=== PATIENT | female | born 1970 | race African-American/Black ===

== ENCOUNTER 2019-05-03 18:09 | Emergency (ER) | payer OTHER ==
[~2019-05-03] VITALS: Ht 172.7 cm; Wt 81.6 kg
[~2019-05-03 18:09] MED LIST: ACETAMINOPHEN-1 EAC1 ORAL; ADVIL200 M2 ORAL; ALBUTEROL SULF8.5 GM INH; AMOXICILLI250 MG/5 M ORAL; AUGMENTIN 875-1 EAC1 ORAL; AZITHROMYCIN250 MG ORAL; BIAXIN500 MG ORAL; CEPACOL SORE T1 EAC5 MM; GUAIFENESIN1200 MG PO; HYDROCHLOROTH12.5 M2; HYDROCHLOROTH12.5 M2 ORAL; HYDROCHLOROTHIA25 MG ORAL; IBUPROFEN600 MG ORAL; IBUPROFEN600 MG PO; NAPROSYN500 M1 ORAL; NEXAFED30 MG ORAL; NKM; NORCO 5-325 TA1 EACH ORAL; NORCO 5-325 TA1 EACH PO; PAMPRIN MAX PA1 EACH PO; PERIDEX 0.12% O15 ML ORO; PREDNISONE20 MG ORAL; PROMETHAZINE-D118 ML ORAL; SUDAFED PE PRE1 EACH PO; TRAMADOL HCL50 MG ORAL; VALIUM5 MG ORAL
[2019-05-03] MEDS ORDERED: NKM (18:25)
[2019-05-03 18:43] VITALS: BP 170/87
--- NOTE | 2019-05-03 18:43 | NUR ---
ED Nurse Note: Patient ambulated to ER from home c/o VIGIL and sinus congestion x2 weeks. Patient is alert and oriented x4 and ambulatory. skin clean and intact. calm and cooperative. no acute distress noted at this time.
--- NOTE | 2019-05-03 18:47 | Emergency Room Report ---
History of Present Illness General Chief Complaint: Headache Source: Patient Present Illness HPI 48-year-old female presents to the emergency department complaining of 7 out of 10 severity frontal headache with nasal congestion and sinus pressure bilaterally x2 weeks. Patient reports initially some response to over-the- counter decongestants however no longer receiving any relief. Patient denies fevers or chills she reports increased lacrimation in the eyes bilaterally she denies dizziness she reports fullness sensation in bilateral ears. Patient denies nausea or vomiting she denies neck pain or stiffness. Patient denies photophobia. 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 Patient reports having environmental allergies as a child she denies taking daily allergy medications. Reports some purulent nasal discharge she denies history of immunocompromise or diabetes. Patient does report history of high blood pressure but was never prescribed medications. No other aggravating or relieving factors at this time. She denies unilateral facial pain, swelling of the lower eyelids or soft tissues of the orbits. Denies rashes or pain with eye movements, or paresthesias, or motor weakness. Denies sudden onset of her VIGIL. Allergies: Coded Allergies: No Known Allergies (Unverified , 03/01/13) Patient History Past Medical History: see triage record, HTN Past Surgical History: none Pertinent Family History: none Last Menstrual Period: 05/03/19 Now: No Reviewed Nursing Documentation: PMH: Agreed; PSxH: Agreed Nursing Documentation-PMH Past Medical History: No History, Except For Hx Cardiac Problems: No - BRONCHITIS Hx Hypertension: Yes Hx Asthma: No Hx Cancer: No Hx Neurological Problems: No Hx Cerebrovascular Accident: No Hx Transient Ischemic Attacks: No Hx Dementia: No Hx Alzheimer's Disease: No Hx Parkinson's Disease: No Hx Meningitis: No Hx Encephalitis: No Hx Seizures: No Hx Epilepsy: No Hx Multiple Sclerosis: No Review of Systems All Other Systems: negative except mentioned in HPI Physical Exam Vital Signs Date Time Temp Pulse Resp B/P (MAP) Pulse Ox O2 Delivery O2 Flow Rate FiO2 05/03/19 18:21 98.4 110 18 170/87 (114) 98 Room Air Sp02 EP Interpretation: reviewed, normal General Appearance: no apparent distress, alert, GCS 15, non-toxic Head: normocephalic, atraumatic Eyes: bilateral eye normal inspection, bilateral eye PERRL ENT: hearing grossly normal, normal pharynx, normal voice, TMs + canals normal , uvula midline, moist mucus membranes, nasal congestion, other - bilateral maxillary ttp to the sinuses and frontal sinuses. purulent d/c /rhinorrhea in bilateral nares. no orbital ST swelling. Neck: full range of motion Respiratory: chest non-tender, lungs clear, normal breath sounds, no rhonchi, no respiratory distress, no wheezing, speaking full sentences Cardiovascular #1: regular rate, rhythm Musculoskeletal: back normal, gait/station normal, normal range of motion, non- tender Neurologic: alert, oriented x3, responsive, motor strength/tone normal, sensory intact, normal gait, speech normal, grossly normal, grossly normal Psychiatric: judgement/insight normal Lymphatic: no adenopathy Medical Decision Making PA Attestation Dr. Yao Is my supervising Physician whom patient management has been discussed with. Diagnostic Impression: Primary Impression: Sinusitis Qualified Codes: J01.10 - Acute frontal sinusitis, unspecified ER Course 48-year-old female presents to the emergency department complaining of 7 out of 10 severity frontal headache with nasal congestion and sinus pressure bilaterally x2 weeks. Patient reports initially some response to over-the- counter decongestants however no longer receiving any relief. Patient denies fevers or chills she reports increased lacrimation in the eyes bilaterally she denies dizziness she reports fullness sensation in bilateral ears. Patient denies nausea or vomiting she denies neck pain or stiffness. Patient denies photophobia. 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 Patient reports having environmental allergies as a child she denies taking daily allergy medications. Reports some purulent nasal discharge she denies history of immunocompromise or diabetes. Patient does report history of high blood pressure but was never prescribed medications. No other aggravating or relieving factors at this time. She denies unilateral facial pain, swelling of the lower eyelids or soft tissues of the orbits. Denies rashes or pain with eye movements, or paresthesias, or motor weakness. Denies sudden onset of her VIGIL. Ddx considered but are not limited to URI, pneumonia, PE, strep pharyngitis, meningitis, Sinusitis, orbital cellulitis, rebound congestion, allergic rhinitis just to name a few. Vital signs: Pt. is afebrile, the remaining VS are WNL H&PE are most consistent with Frontal Sinusitis with symptoms present for greater than 10 days, make this patient a candidate for oral antibiotic therapy according to MIPS criteria. ORDERS: none required at this time, the diagnosis is clinical ED INTERVENTIONS: None required at this time. DISCHARGE: At this time pt. is stable for d/c to home. Will provide printed patient care instructions, and any necessary prescriptions. Care plan and follow up instructions have been discussed with the patient prior to discharge. Last Vital Signs Date Time Temp Pulse Resp B/P (MAP) Pulse Ox O2 Delivery O2 Flow Rate FiO2 05/03/19 18:43 98.4 70 18 170/87 98 Room Air Status: improved Disposition: HOME, SELF-CARE Condition: Stable Scripts Sodium Chloride (SALINE NOSE SPRAY) 45 Ml [place] 1 SPR NS Q6HR, #45 SPRAY Prov: Melly Lazo 05/03/19 Cetirizine Hcl* (ZYRTEC*) 10 Mg Tablet 10 MG ORAL DAILY, #30 TAB 0 Refills Prov: Melly Lazo 05/03/19 Amoxicillin/Potassium Clav 875-125* (AUGMENTIN 875-125 TABLET*) 1 Each Tablet 1 TAB ORAL TWICE A DAY for 10 Days, #20 TAB Prov: Melly Lazo 05/03/19 Patient Instructions: Sinus Headache, Sinusitis, Adult, [id number] Additional Instructions: Take medications as directed. Follow up with a Primary Care Provider in 3-5 days, even if your symptoms have resolved. Return sooner to ED if new symptoms occur, or current symptoms become worse. - Please note that this Emergency Department Report was dictated using [employer] dough mixer technology software, occasionally this can lead to erroneous entry secondary to interpretation by the dictation equipment. Melly Lazo May 03, 2019 18:47
--- NOTE | 2019-05-03 19:00 | NUR ---
HAND-OFF: Report given to MINDY Bower. RAJ at bedside. no orders to carry at this moment.
[2019-05-03] MEDS ORDERED: ZYRTEC10 MG ORAL (19:10)
[2019-05-03] MEDS ORDERED: AUGMENTIN 875-1 EAC1 ORAL (19:10)
[2019-05-03] MEDS ORDERED: SALINE NOSE SPR45 ML NS (19:10)
[2019-05-03 19:20] VITALS: BP 170/87
--- NOTE | 2019-05-03 19:20 | NUR ---
ER Nurse Note: Pt seen, treated, medically cleared for discharge by ERMD. Discharge instuctions and prescriptions given with repeat verbalization by pt. Emphasized to follow up with primay care provider; take whole course of medication. Explained each medication. All orders completed per ERMD orders. Pt a&ox4, VSS, no signs of distress. ID band removed. All questions answered per pt's questions. Pt left with all belongings, left with own transportation.
== END 2019-05-03 19:20 | disposition home or self-care (01) ==
LOC: EMR 19:06
DX: J01.10 Acute frontal sinusitis, unspecified (principal); I10 Essential (primary) hypertension
CPT/HCPCS: 99282

== ENCOUNTER 2019-05-16 19:32 | Emergency (ER) | payer OTHER ==
[~2019-05-16] VITALS: Ht 172.7 cm; Wt 81.6 kg
[~2019-05-16 19:32] MED LIST changes: +SALINE NOSE SPR45 ML NS; +ZYRTEC10 MG ORAL
[2019-05-16 19:46] VITALS: BP 176/105
--- NOTE | 2019-05-16 19:46 | NUR ---
ED Nurse Note: Pt from home walked in due to dizziness, nausea with right ear pain x 3 days. No ear discharge. AAO x4, ambulates with steady gait. Sinus tach on campus monitor 125-133 HR.
[2019-05-16] MEDS ORDERED: Meclizine 25mg tab ORAL ONE (20:15)
[2019-05-16] MEDS ORDERED: ZOFRAN4 MG ORAL (20:33)
[2019-05-16] MEDS ORDERED: MECLIZINE HCL25 MG ORAL (20:33)
[2019-05-16 20:41] VITALS: BP 162/79
--- NOTE | 2019-05-16 20:41 | NUR ---
ER DISCHARGE NOTE: Patient is cleared to be discharged per ERMD, pt is aox4, on room air, with stable vital signs. pt was given dc and prescription instructions, pt was able to verbalize understanding, pt id band removed without complications. pt is able to ambulate with steady gait. pt took all belongings and left with her .
--- NOTE | 2019-05-17 21:58 | Emergency Room Report ---
History of Present Illness General Chief Complaint: Dizziness Source: Patient Present Illness HPI Patient is a 48 year old female who presented after increased dizziness. She reported having increased right aural fullness and decreased hearing. She denies any fever. She had recently finished a course of antibiotics for otitis media. She denies any tinnitus. Dizziness was described as a spinning sensation worse with head movements. No weakness or numbness. She had been ambulatory without assistance. Had prior history of hypertension which is worse when she visits doctors office. She denies and chest discomfort or palpitations. She had nausea without vomiting. She denies visual changes or changes in speech or strength. Allergies: Coded Allergies: No Known Allergies (Unverified , 03/01/13) Patient History Past Medical History: see triage record Last Menstrual Period: n/a Now: No Reviewed Nursing Documentation: PMH: Agreed; PSxH: Agreed Nursing Documentation-PMH Past Medical History: No History, Except For Hx Cardiac Problems: No - BRONCHITIS Hx Hypertension: Yes Hx Asthma: No Hx Cancer: No Hx Neurological Problems: No Hx Cerebrovascular Accident: No Hx Transient Ischemic Attacks: No Hx Dementia: No Hx Alzheimer's Disease: No Hx Parkinson's Disease: No Hx Meningitis: No Hx Encephalitis: No Hx Seizures: No Hx Epilepsy: No Hx Multiple Sclerosis: No Review of Systems All Other Systems: negative except mentioned in HPI Physical Exam Vital Signs Date Time Temp Pulse Resp B/P (MAP) Pulse Ox O2 Delivery O2 Flow Rate FiO2 05/16/19 19:36 98.4 131 18 176/119 (138) 100 Room Air General Appearance: well appearing, no apparent distress, alert, GCS 15 Head: normocephalic, atraumatic Eyes: bilateral eye PERRL, bilateral eye EOMI ENT: hearing grossly normal, normal pharynx, normal voice, TMs + canals normal , uvula midline, other - no mastoid tenderness Neck: full range of motion, supple Respiratory: lungs clear, no respiratory distress, speaking full sentences Cardiovascular #1: normal inspection Gastrointestinal: normal inspection Musculoskeletal: normal inspection, normal range of motion, no calf tenderness Neurologic: normal inspection, alert, oriented x3, responsive, supervisor [employer] III-XII nml as tested, motor strength/tone normal, DTRs symmetric, cerebellar normal, normal gait, no pronator, other - normal finger to nose, heel to benítez, no truncal ataxia Psychiatric: normal inspection, judgement/insight normal, mood/affect normal Skin: no rash Medical Decision Making Diagnostic Impression: Primary Impression: Peripheral vertigo involving right ear ER Course Patient presented for vertigo sensation. Differential diagnosis included but was not limited to hypertensive encephalopathy, labyrinthitis, cerebellar stroke , among others. Patient was noted to have a benign exam consistent with peripheral vertigo. She was given zofran and Meclizine with improvement. Patient was noted to have inital hypertension which she gets when seeing physician. Patient was noted to have improvement in vital signs when more calm. She appears to be stable for outpatient follow up. She was advised to follow up with her doctor in the next few days and to return if worse. Last Vital Signs Date Time Temp Pulse Resp B/P (MAP) Pulse Ox O2 Delivery O2 Flow Rate FiO2 05/16/19 20:41 98.3 73 15 162/79 100 Room Air Status: improved Disposition: HOME, SELF-CARE Condition: Stable Scripts Meclizine Hcl* (MECLIZINE*) 25 Mg Tablet 25 MG ORAL THREE TIMES A DAY, #30 TAB Prov: Gallo Kam MD 05/16/19 Ondansetron (Zofran) 4 Mg Tablet 4 MG ORAL Q6H PRN for Nausea & Vomiting, #15 TAB 0 Refills Prov: Gallo Kam MD 05/16/19 Patient Instructions: Vertigo Gallo Kam MD May 17, 2019 21:58
== END 2019-05-16 20:41 | disposition home or self-care (01) ==
LOC: EMR 19:50
DX: H81.391 Other peripheral vertigo, right ear (principal); I10 Essential (primary) hypertension
CPT/HCPCS: 99282